=== PATIENT | male | born 1950 | race Caucasian/White ===

== ENCOUNTER → 2016-10-28 | Outpatient (CLI) | payer MEDICARE ==
--- NOTE | 2016-10-28 12:44 | RAD ---
MR of the right shoulder Indication: Pain for 3 months. Pain after overexertion. Technique: Standard multiplanar sequences are obtained. Findings: Mild motion degradation Acromioclavicular joint: Mildly degenerative with small undersurface osteophyte. Ununited os acromiale (mesoacromion) is noted with mild fluid signal at the synchondrosis. Rotator cuff: Full-thickness supraspinatus tendon tear measures 3.5 cm AP diameter with 3.5 cm retraction. Moderate volume loss and fatty infiltration of the muscles. Partial subscapularis tendon tear. Mild fluid in the subdeltoid bursa. Glenohumeral joint: Small joint effusion. Labrum: No evidence of labral tear or para labral cyst. Biceps tendon: Tendinosis. Medial subluxation, perched and flattened over the lesser tuberosity. Bones: No lesion or acute fracture. Soft tissue: Small effusion within the subcoracoid bursa. Impression: 1. Moderate full-thickness retracted rotator cuff tear of the supraspinatus tendon. Partial subscapularis tendon tear. 2. Incidentally noted mesoacromion. Thin layer of fluid at the synchondrosis could indicate instability. 3. Biceps tendinosis with medial subluxation. Electronically signed by: Jasson Llanos MD (10/28/2016 12:41 PM)
== END | disposition home or self-care (01) ==
LOC: MRI 10:42
PROVIDERS: ATTEND Family Medicine
DX: M25.511 Pain in right shoulder (principal); M25.411 Effusion, right shoulder; J18.9 Pneumonia, unspecified organism; J44.9 Chronic obstructive pulmonary disease, unspecified
CPT/HCPCS: 73221